=== PATIENT | female | born 1985 | race Caucasian/White ===

== ENCOUNTER 2019-03-29 22:29 | Emergency (ER) | payer MEDICAID ==
[2019-03-29] MEDS: CEFAZOLIN 1 GM/50 ML (PMX) 50 ML IVPB (23:26)
[2019-03-29] MEDS: morphine 2 MG INJ IV (23:26)
[2019-03-29] MEDS: ONDANSETRON 4 MG INJ IV (23:26)
[2019-03-29] MEDS: SOD CHLORIDE 0.9% 1,000 ML IV (23:26)
== END 2019-03-30 11:58 | disposition short-term general hospital (02) ==
LOC: E/R 22:29
DX: S02.401A Maxillary fracture, unspecified side, initial encounter for closed fracture (principal); S09.93XA Unspecified injury of face, initial encounter; R51 Headache; V00.831A Fall from motorized mobility scooter, initial encounter
CPT/HCPCS: 70450; 70486; 72125; 96374; 96375; 99285-25